=== PATIENT | female | born 1990 | race Caucasian/White ===

== ENCOUNTER 2017-03-05 06:13 | Emergency (ER) | payer SELFPAY, OTHER ==
[2017-03-05] MEDS: KETOROLAC 15 MG INJ IV (08:01)
[2017-03-05] MEDS: SOD CHLORIDE 0.9% 1,000 ML IV (08:05)
[2017-03-05 08:48] LABS: ADD MAN DIFF? NO
[2017-03-05 08:53] LABS: ABNORMAL IP MESSAGE 1; BASOPHIL # 0.1 10^3/ul (0.0-0.1); BASOPHILS % 0.4 % (0.0-2.0); EOSINOPHILS % 0.2 % (0.0-7.0); HEMATOCRIT 36.1 % (37.0-47.0); HEMOGLOBIN 12.4 g/dl (12.0-16.0); LYMPHOCYTES # 0.6 10^3/ul (0.8-2.9); LYMPHOCYTES % 4.3 % (15.0-51.0); MEAN CORPUSCULAR HEMOGLOBIN 30.8 pg (29.0-33.0); MEAN CORPUSCULAR HGB CONC 34.3 g/dl (32.0-37.0); MEAN CORPUSCULAR VOLUME 89.6 fl (82.0-101.0); MEAN PLATELET VOLUME 10.2 fl (7.4-10.4); MONOCYTE # 0.6 10^3/ul (0.3-0.9); MONOCYTES % 4.3 % (0.0-11.0); NEUTROPHILS % 90.4 % (39.0-77.0); PLATELET COUNT 285 10^3/UL (140-415); RED BLOOD COUNT 4.03 10^6/ul (4.20-5.40); RED CELL DISTRIBUTION WIDTH 12.8 % (11.5-14.5)
[2017-03-05 08:53] LABS: WHITE BLOOD COUNT 13.3 10^3/ul (4.8-10.8)
[2017-03-05 08:59] LABS: POSITIVE DIFF @See below
[2017-03-05 09:05] LABS: ALANINE AMINOTRANSFERASE 29 IU/L (13-69); ALBUMIN 4.4 g/dl (3.3-4.9); ALKALINE PHOSPHATASE 53 IU/L (42-121); ANION GAP 16 (8-16); ASPARTATE AMINO TRANSFERASE 28 IU/L (15-46); BILIRUBIN,INDIRECT 0.3 mg/dl (0-1.1); BILIRUBIN,TOTAL 0.3 mg/dl (0.2-1.3); BLOOD UREA NITROGEN 13 mg/dl (7-20); CALCIUM 8.8 mg/dl (8.4-10.2); CARBON DIOXIDE 26 mmol/L (21-31); CHLORIDE 105 mmol/L (97-110); CREATININE 0.81 mg/dl (0.44-1.00); GLUCOSE 101 mg/dl (70-220); POTASSIUM 3.8 mmol/L (3.5-5.1); SODIUM 143 mmol/L (135-144); TOTAL PROTEIN 7.2 g/dl (6.1-8.1)
[2017-03-05] MEDS: ONDANSETRON 4 MG INJ IV (09:18)
[2017-03-05] MEDS: SOD CHLORIDE 0.9% 100 ML (10:41)
[2017-03-05] MEDS: IOHEXOL 300MG/ML 150 ML BTL (10:41)
== END 2017-03-05 11:17 | disposition home or self-care (01) ==
LOC: E/R 06:13
DX: S39.81XA Other specified injuries of abdomen, initial encounter (principal); S83.91XA Sprain of unspecified site of right knee, initial encounter; S05.11XA Contusion of eyeball and orbital tissues, right eye, initial encounter; R40.2252 Coma scale, best verbal response, oriented, at arrival to emergency department; R40.2142 Coma scale, eyes open, spontaneous, at arrival to emergency department; R40.2362 Coma scale, best motor response, obeys commands, at arrival to emergency department; V49.50XA Passenger injured in collision with unspecified motor vehicles in traffic accident, initial encounter
CPT/HCPCS: 36415; 70450; 70486; 72125; 72220; 73560; 74177; 80048; 80076; 84703; 85025; 96374; 96375; 99285-25

== ENCOUNTER 2017-11-15 20:50 | Outpatient (CLI) | payer MEDICAID | END 2017-11-16 00:58 | disposition home or self-care (01) | LOC: OBT 20:50 → L-D 20:51 → OBT 11-16 00:58 | DX: O24.419 Gestational diabetes mellitus in pregnancy, unspecified control (principal); Z3A.37 37 weeks gestation of pregnancy | CPT/HCPCS: 76818; 82962 ==

== ENCOUNTER 2017-11-22 22:55 | Emergency (ER) | payer MEDICAID | END 2017-11-23 00:58 | disposition home or self-care (01) | LOC: FTE 22:55 | DX: O99.89 Other specified diseases and conditions complicating pregnancy, childbirth and the puerperium (principal); R21 Rash and other nonspecific skin eruption; Z3A.38 38 weeks gestation of pregnancy | CPT/HCPCS: 82962; 99282 ==

== ENCOUNTER 2017-11-29 03:43 | Inpatient (IN) | payer MEDICAID ==
[2017-11-29] MEDS ORDERED: CARBOPROST 250 MCG INJ IM ×2 (05:00→14:30)
[2017-11-29] MEDS ORDERED: OXYTOCIN 30 UNITS/LR 500 ML IV ×2 (05:00→14:30)
[2017-11-29] MEDS ORDERED: METHYLERGONOVINE 0.2 MG INJ IM ×2 (05:00→14:30)
[2017-11-29] MEDS ORDERED: MISOPROSTOL 200 MCG TAB PR ×2 (05:00→14:30)
[2017-11-29] MEDS: LACTATED RINGER'S 1,000 ML IV ×2 (05:12→11:37)
[2017-11-29 05:13] LABS: ADD MAN DIFF? NO
[2017-11-29 05:15] LABS: BASOPHIL # 0.1 10^3/ul (0.0-0.1); BASOPHILS % 0.6 % (0.0-2.0); EOSINOPHILS # 0.1 10^3/ul (0.0-0.5); EOSINOPHILS % 1.3 % (0.0-7.0); HEMATOCRIT 35.6 % (37.0-47.0); HEMOGLOBIN 11.8 g/dl (12.0-16.0); LYMPHOCYTES # 1.3 10^3/ul (0.8-2.9); LYMPHOCYTES % 16.3 % (15.0-51.0); MEAN CORPUSCULAR HEMOGLOBIN 28.8 pg (29.0-33.0); MEAN CORPUSCULAR HGB CONC 33.1 g/dl (32.0-37.0); MEAN CORPUSCULAR VOLUME 86.8 fl (82.0-101.0); MONOCYTE # 0.6 10^3/ul (0.3-0.9); MONOCYTES % 7.2 % (0.0-11.0); NEUTROPHIL # 5.9 10^3/ul (1.6-7.5); NEUTROPHILS % 73.3 % (39.0-77.0); PLATELET COUNT 168 10^3/UL (140-415); RED CELL DISTRIBUTION WIDTH 14.2 % (11.5-14.5)
[2017-11-29 05:34] LABS: INR 0.87; PROTIME 11.9 Sec (11.9-14.9); PT RATIO 0.9
[2017-11-29 05:35] LABS: PARTIAL THROMBOPLASTIN TIME 24.1 Sec (23.0-35.0)
[2017-11-29 05:37] LABS: AMPHETAMINE/METHAMPHETAMINE Negative (NEGATIVE); BARBITURATES Negative (NEGATIVE); BENZODIAZEPINES Negative (NEGATIVE); CANNABINOIDS Negative (NEGATIVE); COCAINE Negative (NEGATIVE); OPIATES Negative (NEGATIVE)
[2017-11-29 05:46] LABS: GLUCOSE 94 mg/dl (70-220)
[2017-11-29] MEDS ORDERED: OXYTOCIN 30 UNITS/LR 500 ML BAG IV (07:00)
[2017-11-29] MEDS: TERBUTALINE 1 MG/ML INJ SC (08:14)
[2017-11-29] MEDS ORDERED: ONDANSETRON 4 MG INJ (12:45)
[2017-11-29] MEDS ORDERED: CITRIC ACID/NA CITRATE 30 ML CUP (12:45)
[2017-11-29] MEDS: ONDANSETRON 4 MG INJ IV (12:47)
[2017-11-29] MEDS: CITRIC ACID/NA CITRATE 30 ML CUP PO (13:00)
[2017-11-29] MEDS ORDERED: PHENYLephrine (100 MCG/ML) 5ML SYG ×2 (13:12→13:38)
[2017-11-29] MEDS ORDERED: METOCLOPRAMIDE 10 MG INJ (13:20)
[2017-11-29] MEDS ORDERED: OXYTOCIN 10 UNIT INJ (13:20)
[2017-11-29] MEDS ORDERED: LIDOCAINE 2% (SDV) 5 ML INJ (13:20)
[2017-11-29] MEDS ORDERED: KETOROLAC 30 MG INJ (13:21)
[2017-11-29] MEDS ORDERED: DEXAMETHASONE 4 MG/ML 1 ML INJ (13:21)
[2017-11-29] MEDS ORDERED: MEPERIDINE /PF (100 MG/2 ML) AMPULE (13:36)
[2017-11-29] MEDS ORDERED: morphine SULFATE/PF (10 MG/10 ML) INJ (13:40)
[2017-11-29] MEDS ORDERED: FENTAnyl 50 MCG/ML VIAL IV ×4 (14:00→14:30)
[2017-11-29] MEDS ORDERED: NALBUPHINE HCL (10 MG/1 ML) INJ IV (14:00)
[2017-11-29] MEDS ORDERED: HYDROCODONE/APAP (5/325) TAB PO (14:00)
[2017-11-29] MEDS ORDERED: NALOXONE (0.4 MG/ML) INJ IV (14:00)
[2017-11-29] MEDS ORDERED: DIPHENHYDRAMINE 50 MG INJ IV ×2 (14:00)
[2017-11-29] MEDS ORDERED: HYDROmorphONE 0.5 MG/0.5 ML SYG IV ×4 (14:00→18:30)
[2017-11-29] MEDS ORDERED: HYDROmorphONE 1 MG/5 ML IV SYRINGE IV ×6 (14:00→14:30)
[2017-11-29] MEDS ORDERED: OXYCODONE/ACETAMINOPHEN (5/325) TAB PO (14:00)
[2017-11-29] MEDS ORDERED: ONDANSETRON 4 MG INJ IV ×2 (14:00)
[2017-11-29] MEDS ORDERED: morphine 2 MG INJ IV ×2 (14:00)
[2017-11-29] MEDS ORDERED: METOCLOPRAMIDE 10 MG INJ IV (14:00)
[2017-11-29] MEDS ORDERED: ACETAMINOPHEN 500 MG TAB PO (14:00)
[2017-11-29] MEDS ORDERED: MEPERIDINE 25 MG INJ IV (14:00)
[2017-11-29] MEDS ORDERED: EPHEDrine SULFATE 50 MG/5 ML SYG IV (14:00)
[2017-11-29] MEDS ORDERED: KETOROLAC 30 MG INJ IV ×3 (14:00→18:30)
[2017-11-29] MEDS ORDERED: DEXTROSE 5%-LR 1,000 ML IV (14:23)
[2017-11-29] MEDS ORDERED: METHYLERGONOVINE 0.2 MG TAB PO (14:30)
[2017-11-29] MEDS: CEFAZOLIN 2 GM/50 ML (PMX) 50 ML IV (14:51)
[2017-11-29] MEDS: OXYTOCIN 30 UNITS/LR 500 ML IV ×2 (15:22→18:29)
[2017-11-29 16:34] LABS: RAPID PLASMA REAGIN NONREACTIVE (NR)
[2017-11-29] MEDS: LANOLIN 7 GM TUBE TOP (18:32)
[2017-11-29] MEDS: SENNA/DOCUSATE NA (8.6MG/50MG) TAB PO (21:34)
[2017-11-29] MEDS: IBUPROFEN 800 MG TAB PO (22:00)
[2017-11-30] MEDS: LACTATED RINGER'S 1,000 ML IV (03:22)
[2017-11-30] MEDS: IBUPROFEN 800 MG TAB PO ×3 (05:31→21:58)
[2017-11-30 08:08] LABS: ADD MAN DIFF? NO
[2017-11-30 08:15] LABS: BASOPHILS % 0.2 % (0.0-2.0); EOSINOPHILS % 0.5 % (0.0-7.0); HEMATOCRIT 25.4 % (37.0-47.0); HEMOGLOBIN 8.4 g/dl (12.0-16.0); LYMPHOCYTES # 1.2 10^3/ul (0.8-2.9); LYMPHOCYTES % 14.1 % (15.0-51.0); MEAN CORPUSCULAR HGB CONC 33.1 g/dl (32.0-37.0); MEAN CORPUSCULAR VOLUME 87.6 fl (82.0-101.0); MEAN PLATELET VOLUME 11.4 fl (7.4-10.4); MONOCYTE # 0.7 10^3/ul (0.3-0.9); MONOCYTES % 8.7 % (0.0-11.0); NEUTROPHIL # 6.5 10^3/ul (1.6-7.5); PLATELET COUNT 153 10^3/UL (140-415); RED CELL DISTRIBUTION WIDTH 14.2 % (11.5-14.5)
[2017-11-30 08:15] LABS: WHITE BLOOD COUNT 8.5 10^3/ul (4.8-10.8)
[2017-11-30] MEDS: KETOROLAC 30 MG INJ IV (08:42)
[2017-11-30] MEDS: SENNA/DOCUSATE NA (8.6MG/50MG) TAB PO ×2 (11:33→21:22)
[2017-11-30] MEDS: HYDROCODONE/APAP (5/325) TAB PO ×4 (12:00→22:57)
[2017-12-01] MEDS: IBUPROFEN 800 MG TAB PO ×3 (05:39→21:49)
[2017-12-01] MEDS: HYDROCODONE/APAP (5/325) TAB PO ×4 (05:39→21:50)
[2017-12-01] MEDS: SENNA/DOCUSATE NA (8.6MG/50MG) TAB PO ×2 (10:31→21:50)
[2017-12-02] MEDS: HYDROCODONE/APAP (5/325) TAB PO ×3 (06:00→14:28)
[2017-12-02] MEDS: IBUPROFEN 800 MG TAB PO ×2 (06:00→14:28)
[2017-12-02] MEDS: DIPHTH/TET/ACEL PERTUSS (ADULT) 0.5 ML VIAL IM* (09:00)
[2017-12-02] MEDS: MEASLES,MUMPS,RUBELLA VACCINE INJ SC* (09:00)
[2017-12-02] MEDS: SENNA/DOCUSATE NA (8.6MG/50MG) TAB PO (10:14)
== END 2017-12-02 15:30 | disposition home or self-care (01) | DRG 788 ==
LOC: OBT 03:43 → L-D 03:43 → OBT 04:45 → L-D 04:45 → PP1 16:42
PROC: 10D00Z1 Extraction of Products of Conception, Low, Open Approach (ICD-10-PCS; principal; 2017-11-29)
PROC: 3E033VJ Introduction of Other Hormone into Peripheral Vein, Percutaneous Approach (ICD-10-PCS; 2017-11-29)
DX: O24.429 Gestational diabetes mellitus in childbirth, unspecified control (principal); O36.63X0 Maternal care for excessive fetal growth, third trimester, not applicable or unspecified; Z3A.39 39 weeks gestation of pregnancy; Z37.0 Single live birth
CPT/HCPCS: 62319; 80307; 82947; 82962; 85025; 85610; 85730; 86592; 86850; 86900; 86901; 90715; 99464

== ENCOUNTER 2018-03-25 21:54 | Emergency (ER) | payer MEDICAID ==
[2018-03-25 22:52] LABS: ADD MAN DIFF? NO
[2018-03-25 22:59] LABS: BASOPHIL # 0.1 10^3/ul (0.0-0.1); BASOPHILS % 0.8 % (0.0-2.0); EOSINOPHILS # 0.2 10^3/ul (0.0-0.5); EOSINOPHILS % 2.7 % (0.0-7.0); HEMATOCRIT 36.6 % (37.0-47.0); LYMPHOCYTES # 1.3 10^3/ul (0.8-2.9); LYMPHOCYTES % 21.9 % (15.0-51.0); MEAN CORPUSCULAR HEMOGLOBIN 28.2 pg (29.0-33.0); MEAN CORPUSCULAR HGB CONC 32.8 g/dl (32.0-37.0); MEAN CORPUSCULAR VOLUME 86.1 fl (82.0-101.0); MEAN PLATELET VOLUME 9.9 fl (7.4-10.4); MONOCYTE # 0.5 10^3/ul (0.3-0.9); MONOCYTES % 8.8 % (0.0-11.0); NEUTROPHIL # 3.9 10^3/ul (1.6-7.5); NEUTROPHILS % 65.5 % (39.0-77.0); PLATELET COUNT 261 10^3/UL (140-415); RED BLOOD COUNT 4.25 10^6/ul (4.20-5.40); RED CELL DISTRIBUTION WIDTH 13.4 % (11.5-14.5)
[2018-03-25 23:07] LABS: ADD UMIC NO; UR ASCORBIC ACID NEGATIVE (NEGATIVE); UR BACTERIA FEW /HPF (NONE SEEN); UR BILIRUBIN (Dip) NEGATIVE (NEGATIVE); UR BLOOD (Dip) NEGATIVE (NEGATIVE); UR CLARITY SLIGHTLY CLOUDY (CLEAR); UR COLOR YELLOW (YELLOW); UR GLUCOSE (Dip) NEGATIVE (NEGATIVE); UR KETONES (Dip) NEGATIVE (NEGATIVE); UR LEUKOCYTE ESTERASE (Dip) NEGATIVE Leu/ul (NEGATIVE); UR NITRITE (Dip) NEGATIVE (NEGATIVE); UR RBC 1 /HPF (0-5); UR SPECIFIC GRAVITY (Dip) 1.015 (1.003-1.030); UR SQUAMOUS EPITHELIAL CELL FEW /HPF (FEW); UR TOTAL PROTEIN (Dip) NEGATIVE (NEGATIVE); UR UROBILINOGEN (Dip) NEGATIVE (NEGATIVE); UR WBC 1 /HPF (0-5)
[2018-03-25 23:12] LABS: ALANINE AMINOTRANSFERASE 11 IU/L (13-69); ALBUMIN 4.3 g/dl (3.3-4.9); ALBUMIN/GLOBULIN RATIO 1.48; ALKALINE PHOSPHATASE 59 IU/L (42-121); ANION GAP 8 (5-13); ASPARTATE AMINO TRANSFERASE 19 IU/L (15-46); BILIRUBIN,INDIRECT 0.2 mg/dl (0-1.1); BILIRUBIN,TOTAL 0.2 mg/dl (0.2-1.3); BLOOD UREA NITROGEN 12 mg/dl (7-20); CALCIUM 9.5 mg/dl (8.4-10.2); CARBON DIOXIDE 26 mmol/L (21-31); CHLORIDE 105 mmol/L (97-110); Estimated GFR > 60 mL/min (>60); GLUCOSE 114 mg/dl (70-220); POTASSIUM 4.1 mmol/L (3.5-5.1); SODIUM 139 mmol/L (135-144); TOTAL PROTEIN 7.2 g/dl (6.1-8.1)
== END 2018-03-26 00:14 | disposition home or self-care (01) ==
LOC: E/R 21:54
DX: K62.5 Hemorrhage of anus and rectum (principal); N39.0 Urinary tract infection, site not specified; R10.2 Pelvic and perineal pain
CPT/HCPCS: 80053; 81001; 81003; 81025; 85025; 87086; 99284

== ENCOUNTER 2018-07-08 13:03 | Emergency (ER) | payer MEDICAID ==
[2018-07-08 14:54] LABS: ADD MAN DIFF? NO
[2018-07-08 14:55] LABS: WHITE BLOOD COUNT 3.4 10^3/ul (4.8-10.8)
[2018-07-08 14:55] LABS: BASOPHILS % 0.6 % (0.0-2.0); EOSINOPHILS # 0.1 10^3/ul (0.0-0.5); EOSINOPHILS % 1.8 % (0.0-7.0); HEMATOCRIT 36.1 % (37.0-47.0); HEMOGLOBIN 11.7 g/dl (12.0-16.0); LYMPHOCYTES # 0.6 10^3/ul (0.8-2.9); LYMPHOCYTES % 17.8 % (15.0-51.0); MEAN CORPUSCULAR HEMOGLOBIN 28.5 pg (29.0-33.0); MEAN CORPUSCULAR HGB CONC 32.4 g/dl (32.0-37.0); MEAN CORPUSCULAR VOLUME 87.8 fl (82.0-101.0); MEAN PLATELET VOLUME 10.6 fl (7.4-10.4); MONOCYTE # 0.4 10^3/ul (0.3-0.9); MONOCYTES % 10.2 % (0.0-11.0); NEUTROPHIL # 2.4 10^3/ul (1.6-7.5); NEUTROPHILS % 69.3 % (39.0-77.0); PLATELET COUNT 154 10^3/UL (140-415); RED BLOOD COUNT 4.11 10^6/ul (4.20-5.40); RED CELL DISTRIBUTION WIDTH 13.2 % (11.5-14.5)
[2018-07-08] MEDS: ONDANSETRON 4 MG INJ IV (14:55)
[2018-07-08] MEDS: KETOROLAC 30 MG INJ IV (14:56)
[2018-07-08 15:03] LABS: ADD UMIC YES; UR ASCORBIC ACID NEGATIVE (NEGATIVE); UR BACTERIA FEW /HPF (NONE SEEN); UR BILIRUBIN (Dip) NEGATIVE (NEGATIVE); UR BLOOD (Dip) 3+ mg/dL (NEGATIVE); UR CLARITY CLEAR (CLEAR); UR COLOR STRAW (YELLOW); UR GLUCOSE (Dip) NEGATIVE (NEGATIVE); UR KETONES (Dip) NEGATIVE (NEGATIVE); UR LEUKOCYTE ESTERASE (Dip) NEGATIVE Leu/ul (NEGATIVE); UR NITRITE (Dip) NEGATIVE (NEGATIVE); UR RBC 1 /HPF (0-5); UR SPECIFIC GRAVITY (Dip) 1.004 (1.003-1.030); UR TOTAL PROTEIN (Dip) NEGATIVE (NEGATIVE); UR UROBILINOGEN (Dip) NEGATIVE (NEGATIVE); UR WBC 6 /HPF (0-5)
[2018-07-08] MEDS: SOD CHLORIDE 0.9% 1,000 ML IV (15:03)
[2018-07-08 15:18] LABS: ALANINE AMINOTRANSFERASE 26 IU/L (13-69); ALBUMIN 4.2 g/dl (3.3-4.9); ALBUMIN/GLOBULIN RATIO 1.35; ALKALINE PHOSPHATASE 67 IU/L (42-121); ANION GAP 8 (5-13); ASPARTATE AMINO TRANSFERASE 29 IU/L (15-46); BILIRUBIN,INDIRECT 0.8 mg/dl (0-1.1); BILIRUBIN,TOTAL 0.8 mg/dl (0.2-1.3); BLOOD UREA NITROGEN 9 mg/dl (7-20); CARBON DIOXIDE 27 mmol/L (21-31); CHLORIDE 106 mmol/L (97-110); CREATININE 0.77 mg/dl (0.44-1.00); Estimated GFR > 60 mL/min (>60); GLUCOSE 94 mg/dl (70-220); LIPASE 49 U/L (23-300); POTASSIUM 3.7 mmol/L (3.5-5.1); SODIUM 141 mmol/L (135-144); TOTAL PROTEIN 7.3 g/dl (6.1-8.1)
== END 2018-07-08 15:57 | disposition home or self-care (01) ==
LOC: FTE 13:03
DX: R51 Headache (principal)
CPT/HCPCS: 36415; 80053; 81001; 81025; 83690; 85025; 96361; 96374; 96375; 99284-25